=== PATIENT | female | born 1955 | race African-American/Black ===

== ENCOUNTER 2016-08-29 11:54 | Emergency (ER) | payer BC ==
[~2016-08-29 11:54] MED LIST: *UNABLE2; AMLODIPINE PO; CELEXA PO; CELEXA40 MG PO; CIP7 PO; CLEOCIN300 MG PO; DIL2TAB PO; FLEX PO; FLEXERIL PO; GABAPENTIN PO; GLUCPH PO; LANTUS PO; LANTUS SC; LEVEMIR SC; LOP100 PO; LOP25 PO; NEUR100 PO; NEUR300 PO; NEURONTIN PO; NICODERM C14 MG/24 H TOP; NORCO PO; NORV10 PO; NORV5 PO; NOVOLOG SC; PCET PO; PRAV10 PO; PRIN20 PO; Percocet PO; UNK ANTIBIOTIC; ZESTRIL20 MG PO; ZOL100 PO
[2016-08-29 12:31] LABS: BASOPHILS 0 %; EOSINOPHILS 1.1 %; EOSINOPHILS ABSOLUTE 0.03 10/3/uL (0.0-0.53); HEMATOCRIT 32.7 % (36.0-48.0); HEMOGLOBIN 10.6 g/dL (12.0-16.0); LYMPHOCYTES 21.7 %; MANUAL DIFF NO %; MEAN CORPUS HGB CONC 32.4 g/dL (32.0-36.0); MEAN CORPUSCULAR HEMOGLOB 25.7 pg (26.0-34.0); MEAN CORPUSCULAR VOLUME 79.4 fL (80-100); MEAN PLATELET VOLUME 9.4 fL (9.2-13.0); MONOCYTES 6.2 %; MONOCYTES ABSOLUTE 0.17 10/3/uL (0.21-1.20); NEUTROPHILS ABSOLUTE 1.96 10/3/uL (2.02-8.40); PLATELET COUNT 141 10/3/uL (150-400); RBC DISTRIBUTION WIDTH 15.6 % (12.0-16.0); RED CELL COUNT 4.12 10/6/uL (4.0-5.6); WHITE BLOOD CELLS 2.8 10/3/uL (4.5-10.5)
[2016-08-29 12:45] LABS: ASCORBIC ACID (UR NOT ORDER) NEG (NEG); BILIRUBIN, URINE NEGATIVE (NEG); ER URINALYSIS TAT 0 Hrs 20 Mins; KETONE, URINE NEGATIVE (NEG); NITRITE (URINE) NEG (NEG); WBC (NOT ORDERED) (RFLEX) 21 (0-5)
[2016-08-29 12:45] LABS: BUN (BLOOD UREA NITROGEN) 13 MG/DL (6-23); CHLORIDE, SERUM 103 MMOL/L (96-112); CO2 (CARBON DIOXIDE) 33 MMOL/L (24-34); CREATININE 1.34 MG/DL (0.55-1.02); GFR AFRICAN AMERICAN 49 ML/MIN (>=60); GFR NON AFRICAN AMERICAN 42 ML/MIN (>=60); POTASSIUM, SERUM 3.2 MMOL/L (3.5-5.3); SGOT(AST) 47 U/L (5-40); SGPT(ALT) 18 U/L (5-65); TOTAL PROTEIN 7.6 G/DL (6.0-8.5)
[2016-08-29 12:49] LABS: LEUKOCYTE ESTERASE(NOT OR TRACE (NEG)
[2016-08-29 12:54] LABS: A/G RATIO 0.4 (0.7-1.9); ACETAMINOPHEN LEVEL (TYLENOL) < 2.0 MCG/ML (10.0-20.0); ALBUMIN 2.3 G/DL (3.5-5.0); ALCOHOL < 10 MG/DL (0); ALKALINE PHOSPHATASE 74 U/L (45-117); GLOBULIN 5.3 G/DL (2.5-4.1); GLUCOSE, SERUM 429 MG/DL (60-99); SALICYLATE < 1.7 MG/DL (-); SODIUM, SERUM 143 MMOL/L (135-148); TOTAL BILIRUBIN 0.5 MG/DL (0-1.2)
[2016-08-29 13:05] LABS: AMPHETAMINES (NOT ORD) NEG (NEG); BARBITURATES (NOT ORDERED NEG (NEG); BENZODIAZEPINES (NOT ORD) NEG (NEG); CANNABINOIDS (THC) NEG (NEG); COCAINE (NOT ORDERED) POS (NEG); OPIATES POS (NEG); PHENCYCLIDINE(PCP) NEG (NEG); TRICYCLICS NEG (NEG)
== END 2016-08-29 13:47 | disposition home or self-care (01) ==
LOC: ER 11:54
PROVIDERS: Emergency Medicine
DX: E11.649 Type 2 diabetes mellitus with hypoglycemia without coma (principal); J44.9 Chronic obstructive pulmonary disease, unspecified; I10 Essential (primary) hypertension; F19.10 Other psychoactive substance abuse, uncomplicated; Z79.899 Other long term (current) drug therapy; Z79.4 Long term (current) use of insulin
CPT/HCPCS: 80053; 80305; 80307; 81001; 82962; 85025; 87077; 87086; 87186; 96374; 99285

== ENCOUNTER 2016-09-24 11:34 | Emergency (ER) | payer BC | END 2016-09-24 13:45 | disposition home or self-care (01) | LOC: ER 11:34 | DX: R10.13 Epigastric pain (principal); F17.200 Nicotine dependence, unspecified, uncomplicated; I10 Essential (primary) hypertension; E10.9 Type 1 diabetes mellitus without complications; J44.9 Chronic obstructive pulmonary disease, unspecified; Z79.899 Other long term (current) drug therapy; Z79.4 Long term (current) use of insulin | CPT/HCPCS: 80053; 81001; 82962; 83690; 85025; 99284; A9270-GY ==